=== PATIENT | male | born 2000 | race Caucasian/White ===

== ENCOUNTER 2025-03-03 12:16 | Outpatient (AMB) | payer OTHER, SELFPAY ==
--- NOTE | 2025-03-03 12:19 | A.OFFPC_ITS ---
Vital Signs 03/03/25 12:26 Height 5 ft 8 in Weight 199 lb 8 oz BMI 30.3 BP 123/62 Blood Pressure Location Lt brachial Position Sitting Respiration 16 Pulse 68 Pulse Source Pulse Oximeter Temp 98.2 F Temp Source Oral Pulse Oximetry (%) 98 Oxygen Delivery Method Room Air Intake Visit Reasons: EST/REQUESTING PE Intake Note: patient here for new patient visit Pit Inspector Required: No Allergies No Known Allergies Allergy (Verified 03/03/25 12:40) Medication List - Last Reconciled 03/03/25 by Roque Qureshi CNP No Known Home Meds Tobacco use date assessed: 03/03/25 Dental Screening Dental Screen Date: 03/03/25 Did you have a dental visit in the last 12 months?: Yes Did you have a dental problem in the last 6 months where you did not have access to dental care?: No Was dental information given to patient?: Patient has dentist HPI HPI Comments History of Present Illness Details 25-year-old male presents to establish c are. Prior PCP? - [facility] Last office visit/CPE/labs - 5 years ago Acute issue(s) - None Past Medical History - Color vision deficiency Surgical History - None Family History - Dad: Leukemia Social History - Nonsmoker. Does not vape. Drinks 3-4 o ne day weekly. Denies recreational drug use - Has been making healthy dietary choice s. Exercises routinely. Generally sleep well Health maintenance - Last eye exam was several years ago. R eferred to Ophthalmology for routine eye exam. - Last dental visit was a month ago - Last tetanus vaccine was likely 7 year s ago. 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 1. Little interest or pleasure in doing things: not at all 2. Feeling down, depressed, or hopeless: not at all 3. Trouble falling or staying asleep, or sleeping too much: not at all 4. Feeling tired or having little energy: not at all 5. Poor appetite or overeating: not at all 6. Feeling bad about yourself - or that you are a failure or have let yourself or your family down: not at all 7. Trouble concentrating on things, such as reading the newspaper or watching television: not at all 8. Moving or speaking so slowly that other people could have noticed. Or the opposite - being so fidgety or restless that you have been moving around a lot more than usual: not at all 9. Thoughts that you would be better off or of hurting yourself in some way: not at all Total score: 0 Depression Screening Interpretation: Negative Depression Screening Done: Yes 93678 - PHQ-9 Billing: Yes Source: Developed by Drs. Elvis Martínez, Patti Merida, Abilio Arana and colleagues, with an educational byron from [employer]. Thrive Questionnaire Date Thrive assessed: 03/03/25 I am a: Patient What is your living situation today?: I have a steady place to live Within the past 12 months, did the food you bought not last and you didn't have the money to get more?: Never true Within the past 12 months, did you worry whether your food would run out before you got money to buy more?: Never true Do you have trouble paying for medicines?: No Do you have trouble getting transportation to medical appointments?: No Do you have trouble paying your heating and electricity bill?: No Do you have trouble taking care of your child, family member or friend?: No Do you have trouble with day-to-day activities such as bathing, preparing meals, shopping, managing finances, etc.?: No Are you currently unemployed and looking for a job?: No Are you interested in more education?: No Please select the resources that you would like help with: None Currently or been in a relationship where the following occur: No concerns reported THRIVE Score: 0 AUDIT C Alcohol Use Questionnaire (AUDIT-C) 1. How often do you have a drink containing alcohol?: 2-3 times a week 2. How many drinks containing alcohol do you have on a typical day when you are drinking?: 3 or 4 3. How often do you have six or more drinks on one occasion?: Monthly Total Score: 6 Score Reviewed/Action Taken: Yes MICHAEL-7 AMB Questionnaire MICHAEL-7 Date MICHAEL - 7 assessed: 03/03/25 Feeling nervous, anxious, or on edge: 0 = Not at all Not being able to stop or control worryin = Not at all Worrying too much about different things: 0 = Not at all Trouble relaxin = Not at all Being so restless that it is hard to sit still: 0 = Not at all Becoming easily annoyed or irritable: 0 = Not at all Feeling afraid as if something awful might happen: 0 = Not at all Total MICHAEL-7 score (0-4 normal; 5-9 mild; 10-14 moderate; 15-21 severe): 0 Source: Developed by Drs. Elvis Martínez, Patti Merida, Abilio Arana and colleagues, with an educational byron from [employer]. MICHAEL-7 Assessment Billing MICHAEL-7 Assessment Tool: MICHAEL-7 Assessment 76858 Review of Systems Const Details: Denies chills, Denies fatigue, Denies fever(s), Denies headache(s) and Denies weakness HEENT Denies change in vision, Denies dizziness, Denies headache(s), Denies hearing loss, Denies nasal congestion, Denies sinus pain, Denies sinus pressure and Denies sore throat Card Denies chest pain, Denies lightheadedness, Denies dyspnea and Denies other (palpitations) Resp Denies cough, Denies dyspnea and Denies wheezing GI Denies abdominal pain, Denies melena, Denies hematochezia, Denies change in bowel habits, Denies dyspepsia and Denies nausea Denies hematuria and Denies dysuria Musc Denies abnormal gait, Denies myalgias, Denies arthralgias, Denies numbness and Denies tingling Skin/Breast Denies rash, Denies unusual bruising and Denies wounds Neuro Denies abnormal gait, Denies dizziness, Denies headache(s), Denies memory loss, Denies numbness, Denies Sensory deficit (Neuro), Denies tingling and Denies weakness Psych Denies anxiety, Denies depression and Denies memory loss Endo Denies cold intolerance, Denies fatigue, Denies heat intolerance, Denies polydipsia and Denies polyuria Chad/Lymph Denies easy bleeding and Denies easy bruising Aller/Immun Denies wheezing Physical exam (Primary Care) Vital Signs: Last Vital Signs Temp 98.2 F 03/03/25 12:26 Pulse 68 03/03/25 12:26 Resp 16 03/03/25 12:26 BP 123/62 03/03/25 12:26 Pulse Ox 98 03/03/25 12:26 Oxygen Delivery Method Room Air 03/03/25 12:26 BMI result Body Mass Index 30.3 Tobacco/Smoking Status: Tobacco use Status Tobacco use date assessed 03/03/25 03/03/25 12:25 Patient Tobacco Use Status Never used Tobacco 03/03/25 12:25 e-Cigarette/Vaping Use Never Used 03/03/25 12:25 PHQ-9: PHQ-9 Score PHQ-9: Total score 0 03/03/25 12:22 Depression Screening Interpretation: Negative Thrive Assessment: Date of Thrive Assessment Date Thrive assessed 03/03/25 03/03/25 12:22 Currently or been in a relationship where the following occur: No concerns reported Const Other: General: no acute distress, well developed, alert and awake Nutritional Appearance: well nourished Orientation/consciousness: patient oriented x3 HENMT Head: Yes normocephalic and Yes atraumatic Ears: hearing grossly normal bilaterally and TM's normal bilaterally General nose exam: Normal external nose present and Normal nares present Mouth: Normal oral and palatal mucosa present and moist mucous membranes Teeth and gingiva: dentition normal Throat: Yes oropharynx normal Eyes Pupils: Equal, round and reactive pupils present and Pupil accommodation reflex normal EOM: EOMs intact bilaterally Neck Neck: Yes normal visual inspection, Yes no lymphadenopathy and Yes trachea midline Thyroid: Thyroid normal Carotids: no bruits Lymphatic: no lymphadenopathy noted Chest Chest palpation & inspection: normal inspection of the chest Resp Effort & Inspection: normal respiratory effort Auscultation: clear to auscultation bilaterally Cardio Rate: regular rate Rhythm: regular rhythm Heart sounds: S1 normal heart sound present, S2 normal heart sound present, no gallops, no murmurs and no rubs Bruits: no abdominal aortic bruits and no carotid bruits GI Palpation (GI): No Abdominal aortic bruit present, Soft to palpation, nontender, No hepatosplenomegaly present and No Rebound tenderness present Auscultation: normal bowel sounds General: Yes no CVA tenderness Back/Spine/Pelvis Back: no CVA tenderness Cervical Spine: cervical ROM normal and No Cervical spine tenderness Thoracic/Lumbar Spine: thoraco-lumbar ROM normal, No pain with thoraco-lumbar ROM, No thoracic spinal tenderness and No lumbar spinal tenderness Skin General: warm and dry. Normal skin color. Normal skin turgor Lesions: no lesions Rashes: no rashes Trauma: no lacerations or abrasions Wounds: no wounds Nails: normal Neuro General: patient oriented x3, gait normal and CN's II-XI intact bilaterally Cranial nerves: Yes Equal, round and reactive pupils present Cognition (Neuro): normal cognition Gait exam (Neuro): Normal gait present Motor exam (neuro): 5/5 motor strength present throughout Sensory Exam: No Sensory deficit (Neuro) Deep tendon reflexes (DTR's): Right patellar reflex intensity grade: 2+ and Left patellar reflex intensity grade: 2+ Extrem General: Yes normal to inspection, No edema and No calf tenderness Psych Appearance: grossly normal Affect: normal affect Attitude: cooperative Thought process: Normal thought process present Coding Level of Care Code New Pt Prev Care 18-39yr([id number] Diagnoses Normal physical examination, routine Z00.00 Eye exam, routine Z01.00 Color vision deficiency H53.50 Laboratory tests ordered as part of a complete physical exam (CPE) Z00.00 Additional Codes MICHAEL-7 Assessment Billing - MICHAEL-7 Assessment Tool: MICHAEL-7 Assessment 34762 ([id number]) PHQ-9 - 23285 - PHQ-9 Billing: Yes ([id number]) Assessment & Plan Assessment & Plan (1) Normal physical examination, routine: Code(s): Z00.00 - Encounter for general adult medical examination without abnormal findings Category: Medical Plan: No significant functional limitation noted. Healthy diet and routine exercise encouraged. Perform lab work and follow-up for telehealth visit for labs review in 2-4 weeks. Return sooner with symptoms or concerns. Verbalized understanding and agreed with the plan. (2) Eye exam, routine: Code(s): Z01.00 - Encounter for examination of eyes and vision without abnormal findings Category: Medical Plan: Last eye exam was several years ago. Referred to Ophthalmology for routine eye exam. (3) Color vision deficiency: Code(s): H53.50 - Unspecified color vision deficiencies Category: Medical Plan: Plan as above. (4) Laboratory tests ordered as part of a complete physical exam (CPE): Code(s): Z00.00 - Encounter for general adult medical examination without abnormal findings Category: Medical Plan: Fasting labs ordered as part of a complete physical exam. Advised to fast for at least 10 hours before getting labs drawn. May drink water Verbalized understanding and agreed with treatment plan. Orders: Orders Comprehensive [place]. Panel Fast Today Z00.00 - Encounter for general adult medical examination without abnormal findings Microalbumin, Random (w Creat) Today Z00.00 - Encounter for general adult medical examination without abnormal findings Vitamin D 25-OH Total Today Z00.00 - Encounter for general adult medical exa mination without abnormal findings Complete Blood Count Auto Diff Today Z00.00 - Encounter for general adult medical examination without abnormal findings Lipid Panel Today Z00.00 - Encounter for general adult medical examination without abnormal findings TSH reflex Free T4 Today Z00.00 - Encounter for general adult medical examination without abnormal findings UA CC w/rflx Micro + Cult Today Z00.00 - Encounter for general adult medical examination without abnormal findings Referrals Ophthalmology Referral H53.50 - Unspecified color vision deficiencies, Z01.00 - Encounter for examination of eyes and vision without abnormal findings
--- OUTSIDE RECORDS SUMMARY | 2025-03-03 12:19 | XMS_ITS | Data Portability ---
Author Organization [facility], [facility] Address [address] [place] [address] Assessment No assessment recorded. Plan of Treatment Reminders Order Date Submit Date Provider Last Modified By Organization Details Last Modified Time Details Appointments None recorded . Lab None recorded . 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 Surgeries None recorded . Imaging None recorded . Medication Orders predniso ne 10 mg tablet 2014 015 [id number], [address] [facility], [place], [address], 5 12:49:21 Patient TargetsNo targets recorded. Patient Instructions Encounter Date Encounter Id Patient Instructions Last Modified By Organization Details Last Modified Time 06/17/2012 [id number] pediatric sympto m checklist* DOLLY Not available 03/11/2013 03:17:29 declines HPV and flu vaccine (flumist advised); disc testosterone for pubertal jolt Not available 06/17/2012 14:51:11 07/18/2013 [id number] pediatric sympto m checklist* Not available 07/18/2013 14:24:26 VC; life issues/balance; still has significant growth potential with delayed BA, but will be short/normal ultimately; declines HPV Not available 07/18/2013 14:24:26 07/19/2014 [id number] pediatric sympto m checklist* DOLLY Not available 07/19/2014 15:29:16 Well Visit, 12 Years to Young Teen: Care Instructions DOLLY Not available 10/18/2014 02:08:29 declines flu shot, menactra and HPV; life issues/balance/sa fety Not available 07/19/2014 15:29:15 01/18/2015 [id number] Contact derm-markel l start oral steroids since so extensive-gave info sheet-can use benadryl for itch-shake lotions-watch for signs infection 15 min spent [email or web address] Not available 01/18/2015 12:09:43 06/27/2015 [id number] immunization: what you need to know DOLLY Not available 09/26/2015 02:16:27 Well Visit, 12 Years to Young Teen: Care Instructions DOLLY Not available 09/26/2015 02:16:30 [id number] program - 5 fruits & veggies DOLLY Not available 09/26/2015 02:16:30 patient health questionnaire modified for adolescents* [email or web address] Not available 06/27/2015 13:16:09 Reason for Referral blue green color blind on sc reen Referring Physician: Sarthak Horner, Pediatric Medicine, Encounter Date: 07/18/2013 Results Created Date Observation Date Name Description Value Unit Range Abnormal Flag Note LastModifiedBy Organization Detail LastModifiedTime 06/27/20 15 06/27/2015 patie nt healt h quest ionna sayda modif ied for adole scent s* PHQ-9 negati ve Not Available [facility] [address] [place] [address], [phone], 06/27/2015 12:49:21 07/19/20 14 07/19/2014 pedia tric sympt om check list* Result negati ve Not Available [facility] [address] [place] [address], [phone], 07/19/2014 15:01:47 07/18/20 13 07/18/2013 pedia tric sympt om check list* Result negati ve Not Available [facility] [address] [place] [address], [phone], 07/18/2013 13:48:07 06/17/20 12 06/17/2012 pedia tric sympt om check list* Result negati ve Not Available [facility] [address] [place], [address], 06/17/2012 14:26:01 Result Notes None recorded. Problems Name Problem SNOMED Code Status Onset Date Resolution Date Notes Provider Name and Address Organization Details Recorded Time Color blindness 649543460 Active Sarthak ashton [facility] 3 14:24:24 Contact dermatitis 17280186 Completed 06/27/2015 Otis Nath MD [address] [place], [place], , [facility] 5 13:08:43 Contact dermatitis due to plants, except food Completed 06/17/2012 Not Available [facility] 3 03:01:52 Verruca vulgaris 45027039 Completed 06/17/2012 Not Available [facility] 3 03:01:52 Height below average 489313414 Completed 07/19/2014 Sarthak ashton [facility] 4 15:19:04 Acute conjunctiv itis 91947033 Completed 06/17/2012 Not Available [facility] 3 03:01:52 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 Procedures Surgical History Date Name Laterality Status Provider Name and Address Organization Details Recorded Time 0 Wart removal completed Sarthak Siri [facility] 04/11/2010 11:46:47 Imaging Results None recorded. Procedure Notes None recorded. Medical Equipment None Reported. Allergies No known drug allergies Medications Name Sig Start Date Stop Date Status Note LastModified by Organization Details LastModified Time prednisone 10 mg tablet Take 4 tabs PO q day day 1-3, 3 tabs PO day 4-5, 2 tabs PO day 6-7, 1 tab day 8& 9 and 1/2 tab day 10 2014 active Not Available Not Available Not Avai lable Medrol (Nabor) 4 mg tablets in a dose pack Take 6 tablets by oral route TODAY, THEN TAPER for 6 days. 01/08 completed Not Available Not Available Not Available triamcinolo ne acetonide 0.1 % topical ointment Apply a thin film to the affected skin areas by topical route 2 times per day for 7-10 days 2011 active Not Available Not Available Not Avai lable Polytrim 10,000 unit-1 mg/mL eye drops Instill 2 drops into both eyes 4 times daily for 5 days 2009 active Not Available Not Available Not Avai lable multivitami n active QD PRN Not Available Not Available Not Available Vitals Date Recorded Body height Body weight Body mass index (BMI) Systolic And Diastolic Provider Name and Address Organization Details Last Updated DateTime 06/17/2012 144.78 cm 15216.653 462 g 20 kg/m2 98/56 mm[Hg] Kelly Simons [facility] 06/17/2012 14:26:01 Date Recorded Body height Body mass index (BMI) Body weight Systolic And Diastolic Provider Name and Address Organization Details Last Updated DateTime 06/27/2015 168.91 cm 22 kg/m2 27053.446 106 g 108/70 mm[Hg] Ángela Almanzar M.A. [facility] 06/27/2015 12:49:21 Date Recorded Body height Body weight Body mass index (BMI) Systolic And Diastolic Provider Name and Address Organization Details Last Updated DateTime 07/18/2013 153.67 cm 44616.791 22 g 20.4 kg/m2 104/70 mm[Hg] Chloé Yousif [facility] 07/18/2013 13:52:36 Date Recorded Body weight Body height Body mass index (BMI) Systolic And Diastolic Provider Name and Address Organization Details Last Updated DateTime 07/19/2014 93779.522 406 g 163.83 cm 21.7 kg/m2 110/68 mm[Hg] Ángela Almanzar M.A. [facility] 07/19/2014 15:01:47 Social History Question Answer Notes LastModified by Organizat ion Details LastModified Time Tobacco Smoking Status Never Smoker Ruma Laboy poli, [facility] 04/01/2012 11:36:21 Parent's Marital Status Information not available 06/21/2011 Home Situation Both Parents Information not available 06/21/2011 Siblings 0 Information not available 06/21/2011 Parent's Name Arianne Information not available 06/21/2011 Parent's Name Geocj Information not available 06/21/2011 Are You Passively Exposed To Smoke? No [email or web address] Information not available 01/18/2015 Sex: Unknown Functional Status None recorded. Mental Status None recorded. Family History Relationship Description Onset Age of this Age Resolved Age Notes LastModified by Organization Details LastModified Time Mother Allergy Season al (previ ously record ed as Allerg ies) [email or web address] Not available 01/18/2015 11:40:27 Father Heart disease [email or web address] Not available 2014 11:40:27 Father Allergy Season al (previ ously record ed as Allerg ies) [email or web address] Not available 01/18/2015 11:40:27 Paternal Grandmother Allergy Season al (previ ously record ed as Allerg ies) [email or web address] Not available 01/18/2015 11:40:27 Maternal Grandfather Autoimmune disease previo usly record ed as Thyroi d or other Autoim mune Diseas es mswienton Not available 01/18/2015 11:40:27 Maternal Grandfather Diabetes mellitus previo usly record ed as Diabet es [email or web address] Not available 01/18/2015 11:40:27 Notes:Updated 6/4/15 Medical History Condition Response ENDOCRINE PROBLEMS/DIABETES Y Immunizations Vaccine Type Date Status Note Provider Nam e and Address Organization Details Recorded Time DTaP, unspecified formulation 3 completed Not Available [facility] 06/21/2011 03:19:20 DTaP, unspecified formulation 8 completed Not Available [facility] 06/21/2011 03:19:20 DTaP, unspecified formulation 9 completed Not Available [facility] 06/21/2011 03:19:20 DTaP, unspecified formulation 8 completed Not Available [facility] 06/21/2011 03:19:20 DTaP, unspecified formulation 0 completed Not Available [facility] 06/21/2011 03:19:20 Hib, unspecified formulation 8 completed Not Available [facility] 06/21/2011 03:19:20 IPV 3 completed Not Available [facility] 06/21/2011 03:19:20 Hib, unspecified formulation 8 completed Not Available [facility] 06/21/2011 03:19:20 Hib, unspecified formulation 9 completed Not Available [facility] 06/21/2011 03:19:20 IPV 0 completed Not Available [facility] 06/21/2011 03:19:20 Hib, unspecified formulation 9 completed Not Available [facility] 06/21/2011 03:19:20 MMR 9 completed Not Available [facility] 06/21/2011 03:19:20 IPV 8 completed Not Available [facility] 06/21/2011 03:19:20 IPV 8 completed Not Available [facility] 06/21/2011 03:19:20 MMR 2 completed Not Available [facility] 06/21/2011 03:19:20 Hep B, unspecified formulation 8 completed Not Available [facility] 06/21/2011 03:19:20 varicella 9 completed Not Available [facility] 06/21/2011 03:19:20 Hep B, unspecified formulation 8 completed Not Available [facility] 06/21/2011 03:19:20 Hep B, unspecified formulation 9 completed Not Available [facility] 06/21/2011 03:19:20 Influenza, live, quadrivalent, intranasal 3 completed Not Available [facility] 09/03/2019 02:35:34 meningococcal MCV4P 5 completed Not Available [facility] 09/03/2019 02:36:24 Tdap 0 completed Not Available [facility] 09/03/2019 02:33:40 varicella 0 completed Not Available [facility] 09/03/2019 02:33:09 meningococcal MCV4P 0 completed Not Available [facility] 09/03/2019 02:33:24 Past Encounters Encounter ID Performer Location Encounter Start Date Encounter Closed Date Diagnosis/Indication Diagnosis SNOMED-CT Code Diagnosis ICD10 Code Diagnosis Note [id number] Pedro Sands MD [facility] [address] [place] [id number] 4 06/08/2007 14:26:27 06/08/2007 15:05:58 [id number] Pedro Sands MD [facility] [address] [place] [address] [id number] 4 07/12/2007 15:55:12 07/12/2007 16:16:46 [id number] Denis Christopher MD [facility] [address] [place] [address] [phone] 4 10/15/2007 11:08:15 10/15/2007 11:45:51 [id number] Pedro Sands MD [facility] [address] [place] [address]30-296 4 10/21/2007 15:40:15 10/21/2007 15:50:07 [id number] Kylee Palma MD [facility] [address] [place] [id number] 4 02/16/2009 08:55:21 02/16/2009 09:10:30 [id number] Susana Church MD [facility] [address] [place] [id number] 4 03/27/2009 10:31:07 04/26/2009 01:23:50 [id number] Sarthak Horner MD [facility] [address] [place], [place] [address] [address] 06/25/2009 14:40:56 06/25/2009 15:17:54 [id number] Sarthak Horner MD [facility] [address] [place] [address] 10/11/2009 13:27:42 10/11/2009 14:27:29 [id number] Pedro Sands MD [facility] [address] [place] [address] 11/13/2009 17:10:24 11/13/2009 17:39:35 [id number] Denis Christopher MD [facility] [address] [place] [address] 01/01/2010 08:49:31 01/01/2010 11:44:38 [id number] Sarthak Horner MD [facility] [address] [place] [address] 04/11/2010 11:24:57 04/11/2010 12:05:09 [id number] Sarthak Horner MD [facility] [address] [place] [address] 04/16/2010 13:11:56 04/16/2010 14:30:10 [id number] Sarthak Horner MD [facility] [address] [place] [id number] 4 06/03/2011 14:12:26 06/03/2011 15:21:05 [id number] Sarthak Horner MD [facility] [address] [place] [id number] 4 09/04/2011 11:13:20 09/04/2011 13:00:42 [id number] Sarthak Horner MD [facility] [address] [place] [address] 12/09/2011 14:27:04 12/09/2011 15:07:36 [id number] Swati Vasquez MD [facility] [address] [place] [address] 04/01/2012 11:30:23 04/01/2012 12:46:31 [id number] Sarthak Horner MD [facility] [address] [place] [address] 06/17/2012 14:16:52 06/17/2012 14:54:31 [id number] Sarthak Horner MD [facility] [address] [place] [address] 4 07/18/2013 13:44:01 07/18/2013 15:32:25 Well child [id number] Color blindness [id number] [id number] Sarthak Horner MD [facility] [address] [place] [address] [id number] 4 07/19/2014 14:53:03 07/19/2014 15:38:33 Well child [id number] Susana Church MD [facility] [address] [place] [address] 4 01/18/2015 11:33:06 01/18/2015 12:28:09 Contact dermatitis [id number] Otis Nath MD [facility] [address] [place] [id number] 4 06/27/2015 12:39:25 06/27/2015 14:05:53 Active or passive immunization [id number] Z23 Vc obtained for MCV but HPV declined. Well child 743010722 Z00 .129 Healthy 15 yo M with normal G&D. Senior, wants to study economics. No high risk behaviors. Age-approp riate AG given. Health Concerns Section Related Observation LastModified by Organization Detai ls LastModified Time None Recorded Concern Status LastModified by Organization Details LastModified Time None Recorded Advance Directives Directive None Recorded Payers Insurance Date Sequence Insurance Name Policy Number Policy Kumar Covered Member ID Kumar Member ID Guarantor Name 07/30/2016 1 [facility] - MEDICAID ESSENTIAL (MEDICAID HMO) [id number] Dev Snider [id number] Arianne Snider 04/01/2014 1 [facility] NET PLAN (MEDICAID HMO) [id number] Dev Snider [id number] Arianne Snider 07/30/2016 2 [place] [facility] Dev Snider [id number] Arianne Snider 07/18/2013 1 *SELF PAY* Asa Snider 04/01/2014 1 [facility] HEALTH NET PLAN (MEDICAID HMO) [id number] Dev Snider [id number] Arianne Snider 04/01/2014 1 [facility] (HMO) [id number] [facility] Tylor [id number] Arianne Snider
[2025-03-03 12:26] VITALS: BP 123/62; PULSE 68; RESP 16; TEMP 36.8; O2SAT 98; BMI 30.3
== END 2025-03-03 12:56 | disposition home or self-care (01) ==
LOC: HO.HMCFM 12:17
PROVIDERS: PCP Nurse Practitioner Family; Visit Provider Nurse Practitioner Family
DX: Z00.00 Encounter for general adult medical examination without abnormal findings (principal); Z01.00 Encounter for examination of eyes and vision without abnormal findings; H53.50 Unspecified color vision deficiencies

== ENCOUNTER → 2025-03-03 12:16 | Outpatient (BNVA) | payer OTHER, SELFPAY | PROVIDERS: PCP Nurse Practitioner Family; Visit Provider Nurse Practitioner Family | DX: Z00.00 Encounter for general adult medical examination without abnormal findings (principal); H53.50 Unspecified color vision deficiencies; Z13.31 Encounter for screening for depression; Z13.39 Encounter for screening examination for other mental health and behavioral disorders | CPT/HCPCS: 96127 ==

== ENCOUNTER 2025-03-29 09:23 | Outpatient (REF) | payer OTHER, SELFPAY ==
[2025-03-29 11:22] LABS: Appearance Urine Clear; Glucose Urine UA Negative (Negative); PH 6.0 (5.0-9.0); Specific Gravity - Urine 1.020 (1.005-1.025)
[2025-03-29 11:25] LABS: MANUAL DIFF FLAG NO
[2025-03-29 11:30] LABS: Hematocrit 48.3 % (42.0-52.0); Hemoglobin 16.9 g/dl (14.0-18.0); Imm Gran Abs Auto 0.03 X10*3/uL (0.00-0.03); Imm Gran Pct Auto 0.4 % (0.0-0.4); Lymphocytes Absolute Auto 2.2 X10*3/uL (1.2-4.9); Mean Corpuscular HGB Conc 35.0 g/dl (31.0-36.0); Mean Corpuscular Hemoglobin 30.1 pg (27.0-33.0); Mean Corpuscular Volume 85.9 fL (80.0-98.0); NRBC Abs Auto 0.000 X10*3/uL (0.0-0.012); NRBC Pct Auto 0.0 /100WBC (0.0-0.2); Platelet Count 290 X10*3/uL (160-400); Red Blood Count 5.62 X10*6/uL (4.60-5.80); White Blood Count 6.9 X10*3/uL (4.8-10.8)
[2025-03-29 12:03] LABS: Alanine Aminotransferase 75 U/L (0-40); Albumin Level 5.1 g/dL (3.5-5.0); Alkaline Phosphatase 75 U/L (39-117); Anion Gap 13 (12-20); Aspartate Amino Transferase 146 U/L (5-37); Blood Urea Nitrogen 14 mg/dL (9-16); Calcium 9.6 mg/dL (8.4-10.2); Carbon Dioxide 28 mmol/L (22-29); Chloride 104 mmol/L (96-108); Cholesterol 157 mg/dL (<200); Estimated Glomerular Filt Rate > 60; HDL Cholesterol 43 mg/dL (>40); Potassium 3.7 mmol/L (3.3-5.1); Sodium 141 mmol/L (135-145); Total Protein 7.8 g/dL (6.5-8.0); Triglycerides 154 mg/dL (<150)
== END 2025-03-29 09:24 | disposition home or self-care (01) ==
LOC: HO.WFDLDS 09:23
PROVIDERS: Visit Provider Nurse Practitioner Family
DX: Z00.00 Encounter for general adult medical examination without abnormal findings (principal); Z13.6 Encounter for screening for cardiovascular disorders; Z13.29 Encounter for screening for other suspected endocrine disorder
CPT/HCPCS: 36415; 80053; 80061; 81003; 82043; 82306; 82570; 84443; 85025

== ENCOUNTER 2025-05-05 12:47 | Outpatient (AMB) | payer OTHER, SELFPAY ==
--- NOTE | 2025-05-05 12:44 | A.OFFPC_ITS ---
Intake Visit Reasons: Telehealth 2-4 wks labs review Phone Technician Required: No Allergies No Known Allergies Allergy (Verified 05/05/25 12:45) Tobacco use date assessed: 05/05/25 Dental Screening Dental Screen Date: 05/05/25 Did you have a dental visit in the last 12 months?: Yes Did you have a dental problem in the last 6 months where you did not have access to dental care?: No Was dental information given to patient?: Patient has dentist HPI HPI Comments History of Present Illness Details 25-year-old [facility] lab results. He notes that he has been making healthy dietary choices and exercising routinely. He drinks 5-8 beers on Saturdays and same amount some Sundays. He offers no complaints and denies acute symptoms at this time. 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 Current occupational exposures/hazards: No Cognitive needs: No Hearing needs: No Vision needs: No Questionnaire Thrive Questionnaire Date Thrive assessed: 02/27/25 I am a: Patient What is your living situation today?: I have a steady place to live Within the past 12 months, did the food you bought not last and you didn't have the money to get more?: Never true Within the past 12 months, did you worry whether your food would run out before you got money to buy more?: Never true Do you have trouble paying for medicines?: No Do you have trouble getting transportation to medical appointments?: No Do you have trouble paying your heating and electricity bill?: No Do you have trouble taking care of your child, family member or friend?: No Do you have trouble with day-to-day activities such as bathing, preparing meals, shopping, managing finances, etc.?: No Are you currently unemployed and looking for a job?: No Are you interested in more education?: No Please select the resources that you would like help with: None Currently or been in a relationship where the following occur: No concerns reported THRIVE Score: 0 MICHAEL-7 AMB Questionnaire MICHAEL-7 Date MICHAEL - 7 assessed: 03/03/25 Source: Developed by Drs. Elvis Martínez, Patti Merida, Abilio Arana and colleagues, with an educational byron from [employer]. Review of Systems Const Details: Denies chills, Denies fatigue, Denies fever(s), Denies headache(s) and Denies weakness Cardiac Denies chest pain, Denies claudication, Denies leg edema, Denies lightheadedness, Denies palpitations, Denies dyspnea, Denies dyspnea on exertion, Denies orthopnea and Denies other (Loss of consciousness) Resp Denies cough, Denies excessive phlegm production, Denies dyspnea, Denies dyspnea on exertion, Denies snoring and Denies wheezing Physical exam (Primary Care) Tobacco/Smoking Status: Tobacco use Status Tobacco use date assessed 05/05/25 05/05/25 12:46 Patient Tobacco Use Status Never used Tobacco 05/05/25 12:46 e-Cigarette/Vaping Use Never Used 05/05/25 12:46 Thrive Assessment: Date of Thrive Assessment Date Thrive assessed 02/27/25 05/05/25 12:46 Currently or been in a relationship where the following occur: No concerns reported Const Other: Patient is alert and oriented x3 Telehealth Telehealth Telehealth Platform: Telephone Location of provider rendering services: practice address Location of patient: address on file Patient Identification confirmed using: Name, : Yes Telehealth method: voice only Patient verbally consented to treatment: Yes Patient verbally consented to billing insurance company: Yes Patient informed of any privacy concerns related to visit: Yes Coding Level of Care Code Tele Est Pt Level 3 (51668) Diagnoses Transaminitis R74.01 Hyperbilirubinemia E80.6 Hypertriglyceridemia E78.1 Time Spent (min) 15 Assessment & Plan Assessment & Plan (1) Transaminitis: Code(s): R74.01 - Elevation of levels of liver transaminase levels Category: Medical Plan: Recent AST and ALT levels elevated, 146 and 75 respectively; bilirubin level is slightly elevated, 1.1. He drinks 5-8 beers on Saturdays and same amount some Sundays May be attributed to poor diet, excessive alcohol intake, or both. Healthy diet/weight management encouraged. Advised to cut down or avoid drinking. No more than 2 drinks daily or 5 weekly. Fast for 10-12 hours, may drink water, and performed liver panel blood work 2-3 days before next visit. Follow-up for telehealth visit for labs review in 2 months. Return sooner with symptoms or concerns. Verbalized understanding and agreed with the plan. (2) Hyperbilirubinemia: Code(s): E80.6 - Other disorders of bilirubin metabolism Category: Medical Plan: Plan as above. (3) Hypertriglyceridemia: Code(s): E78.1 - Pure hyperglyceridemia Category: Medical Plan: Recent triglyceride level is slightly elevated, 158. Total cholesterol, LDL, and HDL levels are normal. Likely due to poor diet, excessive alcohol intake, or both. Advised to cut down or avoid drinking. Advised to limit foods high in saturated fat and avoid foods high in trans fat. Weight management encouraged. Will recheck lipid panel level in 2 months. Verbalized understanding and agreed with plan. Orders: Orders Lipid Panel 2 Months E78.1 - Pure hyperglyceridemia Liver Panel 2 Months E80.6 - Other disorders of bilirubin metabolism, R74.01 - Elevation of levels of liver transaminase levels
== END 2025-05-05 13:27 | disposition home or self-care (01) ==
LOC: HO.HMCFM 12:47
PROVIDERS: PCP Nurse Practitioner Family; Visit Provider Nurse Practitioner Family
DX: R74.01 Elevation of levels of liver transaminase levels (principal); E80.6 Other disorders of bilirubin metabolism; E78.1 Pure hyperglyceridemia